=== PATIENT | female | born 1960 | race Two or more races ===

== ENCOUNTER 2023-04-02 08:37 | Emergency (ER) | payer OTHER ==
[2023-04-02 08:45] VITALS: BP 152/83; PULSE 81; RESP 16; TEMP 98.7; BMI 37.0
[2023-04-02] MEDS ORDERED: LIDOCAINE 5% TOPICAL PATCH TP ONE (09:27)
[2023-04-02] MEDS ORDERED: IBUPROFEN 400 MG TABLET (FP) PO PRN (09:27)
[2023-04-02] MEDS ORDERED: IBUPROFEN 400 MG TABLET (FP) PO ONE (09:41)
[2023-04-02] MEDS ORDERED: LIDOCAINE 5% TOPICAL PATCH ONE (10:30)
[2023-04-02] MEDS ORDERED: LIDOCAINE PATCH REMOVAL MC SCH (22:00)
== END 2023-04-02 11:22 | disposition home or self-care (01) ==
LOC: JERFT 08:37
DX: M25.561 Pain in right knee (principal); M25.562 Pain in left knee; G89.29 Other chronic pain
CPT/HCPCS: 73521-TC-FY; 73564-TC-LT-FY; 73564-TC-RT-FY; 99284-25